=== PATIENT | female | born 1960 | race Caucasian/White ===

== ENCOUNTER → 2023-08-07 16:00 | Outpatient (BNVA) | payer MEDICARE, SELFPAY | PROVIDERS: Family Provider Internal Medicine; PCP Family Medicine; Visit Provider Family Medicine | DX: E11.9 Type 2 diabetes mellitus without complications (principal); I10 Essential (primary) hypertension; I50.9 Heart failure, unspecified; E78.5 Hyperlipidemia, unspecified; M79.7 Fibromyalgia | CPT/HCPCS: 80053; 80061; 83036; 84443; 85025 ==

== ENCOUNTER → 2023-10-01 09:14 | Outpatient (BNVA) | payer MEDICARE, MEDICAID, SELFPAY | PROVIDERS: Family Provider Internal Medicine; PCP Family Medicine; Visit Provider Nurse Practitioner Family | DX: L57.0 Actinic keratosis (principal); L57.8 Other skin changes due to chronic exposure to nonionizing radiation; D23.72 Other benign neoplasm of skin of left lower limb, including hip; L82.1 Other seborrheic keratosis; D22.5 Melanocytic nevi of trunk | CPT/HCPCS: 17000; 99203 ==

== ENCOUNTER → 2023-11-06 09:21 | Outpatient (BNVA) | payer MEDICARE, MEDICAID, SELFPAY | PROVIDERS: Family Provider Internal Medicine; PCP Family Medicine; Visit Provider Family Medicine | DX: I50.9 Heart failure, unspecified (principal); E11.9 Type 2 diabetes mellitus without complications; M79.7 Fibromyalgia | CPT/HCPCS: 80053; 80061; 82306; 83036; 85025 ==

== ENCOUNTER 2023-11-26 09:39 | Outpatient (CLI) | payer MEDICARE, MEDICAID, SELFPAY ==
--- NOTE | 2023-11-26 09:43 | XRR_ITS ---
PROCEDURE INFORMATION: Exam: XR Lumbosacral Spine Exam date and time: 11/26/2023 9:49 AM Age: 63 years old Clinical indication: Low back pain; Additional info: Vertebrogenic low back pain, please comment on presence or absence of spinal instability TECHNIQUE: Imaging protocol: Radiologic exam of the lumbosacral spine. Views: 2 or 3 views. COMPARISON: CT abdomen pelvis w con* [id number] 12/02/2016 6:04 AM FINDINGS: Bones/joints: Neutral lateral and lateral flexion/extension views of the lumbar spine were obtained. No fracture or other acute abnormality. There is anterolisthesis of L4 on L5 with no appreciable instability. Details of this anterolisthesis is difficult to evaluate due to the patient's body habitus. There is diffuse moderate to marked lumbar disc space narrowing with associated marginal osteophytes. Soft tissues: Unremarkable. XR/XR lumbar spine f/e only [id number] IMPRESSION: Anterolisthesis of L4 on L5 with no instability. Diffuse degenerative disc disease.
== END 2023-11-26 09:40 | disposition home or self-care (01) ==
LOC: RAD 09:41
PROVIDERS: Family Provider Internal Medicine; PCP Family Medicine; Visit Provider Nurse Practitioner
DX: M43.16 Spondylolisthesis, lumbar region (principal); M25.78 Osteophyte, vertebrae
CPT/HCPCS: 72120

== ENCOUNTER 2023-11-28 10:20 | Outpatient (CLI) | payer MEDICARE, MEDICAID, SELFPAY ==
--- NOTE | 2023-11-28 10:20 | MM_ITS ---
WS: [id number] BILATERAL SCREENING DIGITAL TOMOSYNTHESIS MAMMOGRAM WITH CAD HISTORY: Z12.39 - Encounter for other screening for malignant neop... COMPARISON: 08/10/2020, 07/08/2019 Bilateral CC and MLO views with tomosynthesis and synthetic mammography submitted. Computer aided det ection analyzed. Breast composition: There are scattered areas of fibroglandular density. No suspicious masses, microc alcifications or architectural distortion. MM/[place] [id number] IMPRESSION: BI-RADS: 1-Negative FOLLOW UP: 1 Year Follow-up
== END 2023-11-28 10:21 | disposition home or self-care (01) ==
PROVIDERS: PCP Family Medicine; Visit Provider Family Medicine
DX: Z12.31 Encounter for screening mammogram for malignant neoplasm of breast (principal); R92.323 Mammographic fibroglandular density, bilateral breasts
CPT/HCPCS: 77063; 77067

== ENCOUNTER → 2024-01-28 09:37 | Outpatient (BNVA) | payer MEDICARE, MEDICAID, SELFPAY | PROVIDERS: PCP Nurse Practitioner Family; Referring Provider Family Medicine; Visit Provider Internal Medicine Cardiovascular Disease | DX: R07.9 Chest pain, unspecified (principal); R06.02 Shortness of breath; I50.30 Unspecified diastolic (congestive) heart failure | CPT/HCPCS: 80048; 83880; 93005; 99204 ==

== ENCOUNTER 2024-02-13 15:35 | Outpatient (CLI) | payer MEDICARE, MEDICAID, SELFPAY ==
--- NOTE | 2024-02-13 15:46 | XRR_ITS ---
PROCEDURE INFORMATION: Exam: XR Lumbosacral Spine Exam date and time: 02/13/2024 4:13 PM Age: 64 years old Clinical indication: Injury or trauma; Fall; Blunt trauma (contusions or hematomas); Additional info: W19. Xxxa - unspecified fall, initial encounter TECHNIQUE: Imaging protocol: Radiologic exam of the lumbosacral spine. Views: 2 or 3 views. COMPARISON: CR XR lumbar spine f/e only [id number] 11/26/2023 9:49 AM FINDINGS: Bones/joints: Severe multilevel spondylosis of the lumbar spine with facet arthrosis, osteophytosis and endplate degeneration. No evidence of acute fracture or subluxation. Mild levoscoliosis. The sacrum is grossly intact. Soft tissues: Grossly unremarkable. XR/XR lumbar spine 2-3V* [id number] IMPRESSION: 1. Severe degenerative changes without evidence of acute fracture or subluxation of the lumbar spine. CT may be helpful for further detail if clinically warranted as a nondisplaced or minimally displaced fracture could be obscured given the degree of degenerative change.
--- NOTE | 2024-02-13 15:46 | XRR_ITS ---
PROCEDURE INFORMATION: Exam: XR Left Knee Exam date and time: 02/13/2024 4:13 PM Age: 64 years old Clinical indication: Injury or trauma; Fall; Blunt trauma; Knee; Left; Additional info: W19. Xxxa - unspecified fall, initial encounter TECHNIQUE: Imaging protocol: Radiologic exam of the left knee. Views: 3 views. COMPARISON: No relevant prior studies available. FINDINGS: Bones/joints: Moderate tricompartmental osteoarthritis with marginal osteophytes. No evidence of acute fracture or subluxation. No evidence of joint effusion. Soft tissues: No gross soft tissue abnormality. XR/XR knee LT 3V* [id number] IMPRESSION: 1. Osteoarthritis without evidence of acute fracture or subluxation.
--- NOTE | 2024-02-13 15:46 | XRR_ITS ---
PROCEDURE INFORMATION: Exam: XR Left Hand Exam date and time: 02/13/2024 4:13 PM Age: 64 years old Clinical indication: Injury or trauma; Fall; Blunt trauma (contusions or hematomas); Hand; Left; Additional info: W19. Xxxa - unspecified fall, initial encounter TECHNIQUE: Imaging protocol: Radiologic exam of the left hand. Views: 3 or more views. COMPARISON: CR XR wrist LT min 3V* [id number] 02/13/2024 4:13 PM FINDINGS: Bones/joints: No evidence of fracture or subluxation. Radiocarpal articulation and carpal rows are grossly intact. 3 mm degenerative calcification in the region of the distal radioulnar joint. No evidence of acute osseous erosion. Moderate osteoarthritis of the thumb carpometacarpal joint. Soft tissues: Grossly unremarkable. XR/XR hand LT min 3V* [id number] IMPRESSION: 1. No evidence of fracture or subluxation.
--- NOTE | 2024-02-13 15:46 | XRR_ITS ---
PROCEDURE INFORMATION: Exam: XR Right Knee Exam date and time: 02/13/2024 4:13 PM Age: 64 years old Clinical indication: Injury or trauma; Fall; Blunt trauma; Knee; Right; Additional info: W19. Xxxa - unspecified fall, initial encounter TECHNIQUE: Imaging protocol: Radiologic exam of the right knee. Views: 3 views. COMPARISON: No relevant prior studies available. FINDINGS: Bones/joints: Moderate-severe tricompartmental osteoarthritis with marginal osteophytes and subchondral sclerosis, worst in the medial femorotibial compartment. No evidence of acute fracture or subluxation. No evidence of joint effusion. Soft tissues: No gross soft tissue abnormality. XR/XR knee RT 3V* [id number] IMPRESSION: 1. Osteoarthritis without evidence of acute fracture or subluxation.
--- NOTE | 2024-02-13 16:03 | XRR_ITS ---
PROCEDURE INFORMATION: Exam: XR Left Wrist Exam date and time: 02/13/2024 4:13 PM Age: 64 years old Clinical indication: Injury or trauma; Fall; Blunt trauma (contusions or hematomas); Wrist; Left; Additional info: W19. Xxxa - unspecified fall, initial encounter TECHNIQUE: Imaging protocol: Radiologic exam of the left wrist. Views: 3 or more views. COMPARISON: CR XR hand LT min 3V* [id number] 02/13/2024 4:13 PM FINDINGS: Bones/joints: No evidence of fracture or subluxation. Radiocarpal articulation and carpal rows are grossly intact. Soft tissues: Grossly unremarkable. XR/XR wrist LT min 3V* [id number] IMPRESSION: 1. No evidence of fracture or subluxation.
== END 2024-02-13 15:36 | disposition home or self-care (01) ==
LOC: RAD 15:38
PROVIDERS: PCP Nurse Practitioner Family; Visit Provider Nurse Practitioner Family
DX: M51.360 Other intervertebral disc degeneration, lumbar region with discogenic back pain only (principal); M17.11 Unilateral primary osteoarthritis, right knee; M17.12 Unilateral primary osteoarthritis, left knee; M61.442 Other calcification of muscle, left hand; M19.042 Primary osteoarthritis, left hand; Y92.009 Unspecified place in unspecified non-institutional (private) residence as the place of occurrence of the external cause; W19.XXXA Unspecified fall, initial encounter
CPT/HCPCS: 72100; 73110; 73130; 73562

== ENCOUNTER → 2024-02-18 09:44 | Outpatient (BNVA) | payer MEDICARE, MEDICAID, SELFPAY | PROVIDERS: PCP Nurse Practitioner Family; Visit Provider Nurse Practitioner Family | DX: E11.9 Type 2 diabetes mellitus without complications (principal); G89.29 Other chronic pain; M54.50 Low back pain, unspecified; M81.0 Age-related osteoporosis without current pathological fracture; W19.XXXA Unspecified fall, initial encounter; Y92.009 Unspecified place in unspecified non-institutional (private) residence as the place of occurrence of the external cause | CPT/HCPCS: 80053; 83036; 84443; 85025 ==

== ENCOUNTER 2024-02-26 11:41 | Outpatient (CLI) | payer MEDICARE, MEDICAID, SELFPAY ==
--- NOTE | 2024-02-26 14:00 | USCV_ITS ---
Brittany Ward Age: 64 Gender: F : 1960 Exam Date: 02/26/2024 13:56 Ordering Phys: Brenda Aldana MD ([email or web address]) Technologist: BÁRBARA [place] [facility] [place]: CHF BP: 110 / 60 HR: 334 Rhythm: Sinus Technical Quality: Adequate MEASUREMENTS (Male / Female) Normal Values 2D ECHO LV Diastolic Diameter PLAX 5.1 cm 4.2 - 5.9 / 3.9 - 5.3 cm IVS Diastolic Thickness 1.1 cm 0.6 - 1.0 / 0.6 - 0.9 cm IVS Systolic Thickness 1.8 cm LVPW Diastolic Thickness 1.6 cm 0.6 - 1.0 / 0.6 - 0.9 cm LVPW Systolic Thickness 2.4 cm LVOT Diameter 2.0 cm LV Ejection Fraction 2D Teich 57.2 % LV Ejection Fraction MOD 4C 71.6 % LV Ejection Fraction MOD 2C 56.8 % LV Ejection Fraction 2C AL 57.6 % LA Diameter 3.3 cm RA Systolic Volume 4C AL 19.3 ml RA Systolic Volume 4C MOD 18.0 ml LA Sys Volume AL 39.5 cm cubed LA Sys Volume Index AL 17.4 cm cubed/m squared Aorta at Sinotubular Diameter 2.4 cm M-MODE LA Ao Ratio MM 0.9 AV Cusp Separation MM 1.7 cm DOPPLER AV Peak Velocity 124.0 cm/s LVOT Peak Velocity 109.0 cm/s AV Area Cont Eq vti 3.6 cm squared AV Area Cont Eq pk 2.8 cm squared MV Peak Velocity 85.0 cm/s MV Area PHT 3.4 cm squared Mitral E to A Ratio 0.9 TR Peak Velocity 124.0 cm/s TR Peak Gradient 6.2 mmHg TR Mean Velocity 97.0 cm/s TR Mean Gradient 4.1 mmHg TR Velocity Time Integral 38.9 cm TV Peak E Velocity 50.0 cm/s Right Atrial Pressure 3.0 mmHg Pulmonary Artery Systolic Pressu 9.2 mmHg PV Peak Velocity 117.0 cm/s RV Ejection Time 0.4 s FINDINGS Left Ventricle Normal LV size and ejection fraction of 57%.abnormal septal motion consistent with conduction abnormality. Grade I/IV diastolic dysfunction (abnormal relaxation filling pattern), normal to mildly elevated filling pressures. Segmental wall motion analysis difficult because of the poor ultrasonic window Right Ventricle Normal right ventricular size and systolic function. Right Atrium Normal right atrial size. Left Atrium Normal left atrial size. Mitral Valve No gross abnormalities noted Aortic Valve Peak velocity aortic valve is 1.8 cm/s with a peak gradient of 18 and a mean gradient of 9 mmHg. Tricuspid Valve Trace of tricuspid regurgitation Pulmonic Valve Pulmonic valve not well visualized. Pericardium No pericardial effusion. Aorta Normal aortic annulus size. IVC Inferior vena cava not visualized. CONCLUSIONS Normal LV size and ejection fraction of 57%.abnormal septal motion consistent with conduction abnormality. Grade I/IV diastolic dysfunction (abnormal relaxation filling pattern), normal to mildly elevated filling pressures. Segmental wall motion analysis difficult because of the poor ultrasonic window. Features of aortic valve sclerosis with a peak velocity 1.8 m/s. Trace of tricuspid regurgitation. Estimated pulmonary artery peak systolic pressure was within normal limits. There is no pericardial effusion. There are no intracardiac masses. Technically difficult study . No similar previous studies are available for comparison Dr Brenda Aldana MD [facility] (Electronically Signed) Final Date: 02 March 2024 18:19 S
== END 2024-02-26 11:42 | disposition home or self-care (01) ==
LOC: RAD 11:42
PROVIDERS: PCP Nurse Practitioner Family; Visit Provider Internal Medicine Cardiovascular Disease
DX: I50.30 Unspecified diastolic (congestive) heart failure (principal); I70.0 Atherosclerosis of aorta
CPT/HCPCS: 93306

== ENCOUNTER 2024-02-28 12:48 | Outpatient (CLI) | payer MEDICARE, MEDICAID, SELFPAY ==
[2024-02-28] MEDS: iohexol 350 mg/mL 500 mL Btl (per mL) IV (13:28)
--- NOTE | 2024-02-28 14:00 | CTR_ITS ---
PROCEDURE INFORMATION: Exam: CT Lumbar Spine With Contrast Exam date and time: 02/28/2024 1:20 PM Age: 64 years old Clinical indication: Injury or trauma; Fall; Blunt trauma (contusions or hematomas); Prior surgery; Surgery date: 6+ months; Surgery type: Gb, hysterectomy, bladder sling, appy; Additional info: W19. Xxxa - unspecified fall, initial encounter TECHNIQUE: Imaging protocol: Computed tomography of the lumbar spine with contrast. Radiation optimization: All CT scans at this facility use at least one of these dose optimization techniques: automated exposure control; mA and/or kV adjustment per patient size (includes targeted exams where dose is matched to clinical indication); or iterative reconstruction. Contrast material: OMNI 350; Contrast volume: 100 ml; Contrast route: INTRAVENOUS (IV); COMPARISON: CR XR lumbar spine 2-3V* [id number] 02/13/2024 4:13 PM RADIATION DOSE METRICS: Total DLP (mGy-cm): 924.7 FINDINGS: Bones/joints: There is a 22 degree levoscoliosis of the lumbar spine centered at L3. Vertebral body heights are preserved. There is a 3 mm grade 1 L4-L5 spondylolisthesis. Multilevel lumbar spondylosis is noted with disc osteophyte, uncovertebral spurring and facet arthropathy causing moderate to severe canal narrowing at multiple levels worst at L2-L3, L3-L4 and L4-L5. There is in addition severe neuroforaminal narrowing on the left at L5-S1. Soft tissues: Unremarkable. CT/CT lumbar spine w con [id number] IMPRESSION: No evidence for acute lumbar fracture. Levoscoliosis and multilevel lumbar spondylosis, grade 1 L4-L5 spondylolisthesis.
== END 2024-02-28 12:49 | disposition home or self-care (01) ==
LOC: RAD 12:48
PROVIDERS: PCP Nurse Practitioner Family; Visit Provider Nurse Practitioner Family
DX: M43.16 Spondylolisthesis, lumbar region (principal); M25.78 Osteophyte, vertebrae; M47.896 Other spondylosis, lumbar region; M99.63 Osseous and subluxation stenosis of intervertebral foramina of lumbar region; E11.9 Type 2 diabetes mellitus without complications; M81.0 Age-related osteoporosis without current pathological fracture; W19.XXXA Unspecified fall, initial encounter; Y92.009 Unspecified place in unspecified non-institutional (private) residence as the place of occurrence of the external cause
CPT/HCPCS: 72132

== ENCOUNTER 2024-03-18 07:53 | Outpatient (CLI) | payer MEDICARE, MEDICAID, SELFPAY ==
--- NOTE | 2024-03-18 08:30 | US_ITS ---
WS: [id number] RIGHT UPPER QUADRANT ULTRASOUND HISTORY: R74.8 - Abnormal levels of other serum enzymes COMPARISON: None available. Liver: 19.7 cm in length. Markedly enlarged heterogeneous liver. Liver demonstrates marked attenuatio n with incomplete visualization of the entire liver. Portal Vein: Normal hepatopetal flow with monophasic waveform. Gallbladder: Prior cholecystectomy. CBD: 0.6 cm Pancreas: Not visualized. Right kidney: 10.3 cm in length. Normal size and echogenicity. No hydronephrosis or mass. Aorta and IVC: Poorly visualized. Mild atherosclerosis. No ascites. US/US liver [id number] IMPRESSION: 1. Technically difficult and limited RIGHT upper quadrant ultrasound. 2. Prior cholecystectomy. 3. Marked hepatic steatosis and hepatomegaly. The entire liver is not well dariela ged due to body habitus.
== END 2024-03-18 07:54 | disposition home or self-care (01) ==
PROVIDERS: PCP Nurse Practitioner Family; Visit Provider Nurse Practitioner Family
DX: K76.0 Fatty (change of) liver, not elsewhere classified (principal); R74.8 Abnormal levels of other serum enzymes; R16.0 Hepatomegaly, not elsewhere classified; Z90.49 Acquired absence of other specified parts of digestive tract
CPT/HCPCS: 76705

== ENCOUNTER → 2024-03-31 08:03 | Outpatient (BNVA) | payer MEDICARE, MEDICAID, SELFPAY | PROVIDERS: PCP Nurse Practitioner Family; Visit Provider Nurse Practitioner Family | DX: L57.8 Other skin changes due to chronic exposure to nonionizing radiation (principal); L82.1 Other seborrheic keratosis; Z85.828 Personal history of other malignant neoplasm of skin; L57.0 Actinic keratosis | CPT/HCPCS: 17000; 99213 ==

== ENCOUNTER → 2024-05-13 09:31 | Outpatient (BNVA) | payer MEDICARE, MEDICAID, SELFPAY | PROVIDERS: PCP Nurse Practitioner Family; Visit Provider Internal Medicine Cardiovascular Disease | DX: I11.0 Hypertensive heart disease with heart failure (principal); I50.32 Chronic diastolic (congestive) heart failure; E78.2 Mixed hyperlipidemia; E11.9 Type 2 diabetes mellitus without complications; Z79.4 Long term (current) use of insulin; E03.9 Hypothyroidism, unspecified; I35.8 Other nonrheumatic aortic valve disorders | CPT/HCPCS: 36415; 80048; 83880; 99214 ==

== ENCOUNTER 2024-05-14 14:18 | Outpatient (CLI) | payer MEDICARE, MEDICAID, SELFPAY ==
--- NOTE | 2024-05-14 15:00 | XR_ITS ---
WS: [id number] DEXA (DUAL ENERGY X-RAY ABSORPTIOMETRY) Bone mineral density was performed using a SurgiLight machine. HISTORY: M81.0 - Age-related osteoporosis without current patholog... COMPARISON: None available. Lumbar spine BMD (L1-L4): 1.551 g/cm2 T score: 3.1 Z score: 3.3 Total hip BMD: Left: 1.005 g/cm2. T score: 0.0 Z score: 0.2 Right: 0.966 g/cm2. T score: -0.3 Z score: -0.1 10 year probability of a major osteoporotic fracture is 7.4%. LEFT scoliosis lumbar spine XR/XR DEXA axial skeleton* [id number] IMPRESSION: NORMAL BONE MINERAL DENSITY based upon the WHO classification for females.
== END 2024-05-14 14:19 | disposition home or self-care (01) ==
LOC: RAD 14:19
PROVIDERS: PCP Nurse Practitioner Family; Visit Provider Nurse Practitioner Family
DX: M81.0 Age-related osteoporosis without current pathological fracture (principal); M41.86 Other forms of scoliosis, lumbar region
CPT/HCPCS: 77080

== ENCOUNTER → 2024-05-15 10:46 | Outpatient (BNVA) | payer MEDICARE, MEDICAID, SELFPAY | PROVIDERS: PCP Nurse Practitioner Family; Referring Provider Nurse Practitioner Family; Visit Provider Student in an Organized Health Care Education/Training Program | DX: Z12.11 Encounter for screening for malignant neoplasm of colon (principal) | CPT/HCPCS: 99024; 99204 ==

== ENCOUNTER 2024-06-24 06:25 | Day surgery (SDC) | payer MEDICARE, MEDICAID, SELFPAY ==
[2024-06-24 06:43] VITALS: BP 144/79; PULSE 65; RESP 17; TEMP 36.5; O2SAT 98; BMI 7030.0
--- NOTE | 2024-06-24 07:05 | W.PM.OPSFHP ---
Same Day Surgery H&P Indication for Procedure/HPI DATE OF PROCEDURE: June 24, 2024 CHIEF COMPLAINT/INDICATIONFOR SURGICAL PROCEDURE: screening colonoscopy PREOP DIAGNOSIS: screening colonoscopy PLANNED PROCEDURE: Operation Date: 06/24/24 07:30 Proposed Procedures p Colonoscopy 41549, G0105, Z12.11(Not Applicable) - Jose Powers MD Medications/Allergies* Home Medications ?Medication ?Instructions ?Recorded ?Confirmed ?Type hydrocodone 10 mg-acetaminophen 15 ml PO Q4H PRN Pain 08/07/23 06/24/24 History 325 mg/15 mL oral solution ascorbate calcium (vitamin C) 500 500 mg PO DAILY 01/28/24 06/24/24 History mg tablet aspirin 81 mg tablet,delayed 81 mg PO DAILY 01/28/24 06/24/24 History release cholecalciferol (vitamin D3) 25 25 mcg PO DAILY 01/28/24 06/24/24 History mcg (1,000 unit) capsule coenzyme Q10 100 mg capsule (Co 100 mg PO DAILY 01/28/24 06/24/24 History Q-10) krill oil 500 mg capsule 500 mg PO DAILY 01/28/24 06/24/24 History bisoprolol 10 1 tab PO DAILY 06/19/24 06/24/24 History mg-hydrochlorothiazide 6.25 mg tablet (Ziac) Allergies/Adverse Reactions Allergy/AdvReac Type Severity Reaction Status Date / Time Influenza Virus Vaccines Allergy ADR-Chest Verified 06/24/24 06:32 Pain pregabalin (From Lyrica) Allergy ADR-Chest Verified 06/24/24 06:32 Pain sulfamethoxazole (From Allergy ADR-Chest Verified 06/24/24 06:32 Bactrim) Pain trimethoprim (From Bactrim) Allergy ADR-Chest Verified 06/24/24 06:32 Pain Pertinent History/Comorbid Conditions* Medical History (Updated 05/13/24 @ 10:59 by Brenda Aldana MD) Osteoporosis Hypothyroidism Family History (Updated 05/15/24 @ 11:04 by JOSHUA Zheng) Heart disease Mother Father Social History Smoking and tobacco/nicotine status: never used tobacco/nicotine Pertinent Exam Findings alert, oriented x 3, clear to auscultation bilaterally, regular rate & rhythm and procedure specific exam findings abdomen soft, nt, nd Recommendations Surgery/Procedure today Other Plans: Colonoscopy today Coding Level of Care Code Acute Code for Chg Fwd
[2024-06-24] MEDS: sodium chloride 0.9% 500 ML 15 ML IV (07:08)
[2024-06-24 07:09] LABS: Glucose Point of Care 141 mg/dL (70-110)
--- NOTE | 2024-06-24 07:10 | ANES.PREANE2 ---
Pre-Anesthetic Assessment Height/Weight: Height 12.7 cm Weight 113.398 kg Temp Pulse Resp BP Pulse Ox O2 Del Method 97.7 F 65 17 144/79 98 Room Air 06/24/24 06:43 06/24/24 06:43 06/24/24 06:43 06/24/24 06:43 06/24/24 06:43 06/24/24 06:43 Preop Diagnosis: screening colonoscopy Operation Date: 06/24/24 07:30 Proposed Procedures p Colonoscopy 13941, G0105, Z12.11(Not Applicable) - Jose Powers MD Was Beta Carlos taken within 24 hours: Yes Was Clonidine taken within 24 hours: N/A Last intake: Intake Last Liquid Date 06/23/24 Last Liquid Time 23:00 Last Solid Date 06/22/24 Last Solid Time 20:00 Social No alcohol and No tobacco Exam alert, oriented x 3, clear to auscultation bilaterally and regular rate & rhythm Airway Mallampati: Class III Dentition: full Pulmonary Othopnea and Shortness of Breath (Baseline per patient, no new worsening symptoms. ) CV/HEM Hypertension (HLD, Diastolic HF with preserved EF, mild aortic sclerosis. No new symptoms of SOB/Chest pain. ) None reported Hepatic None reported GI Gastroesophageal Reflux Disease Controlled with medication Metabolic Morbid Obesity and Thyroid Disease BG140, hypothyroid Musc/skel None reported Neuropsych None reported Anesthetic Plan ASA status: 3 Anesthesia: MAC Risk of > 500 ml blood loss (7ml/kg in children): No Medications/Allergies Home Medications ?Medication ?Instructions ?Recorded ?Confirmed ?Last Taken ?Type hydrocodone 10 mg-acetaminophen 15 ml PO Q4H PRN Pain 08/07/23 06/24/24 06/23/24 History 325 mg/15 mL oral solution ascorbate calcium (vitamin C) 500 500 mg PO DAILY 01/28/24 06/24/24 06/16/24 History mg tablet aspirin 81 mg tablet,delayed 81 mg PO DAILY 01/28/24 06/24/24 06/18/24 History release cholecalciferol (vitamin D3) 25 25 mcg PO DAILY 01/28/24 06/24/24 06/16/24 History mcg (1,000 unit) capsule coenzyme Q10 100 mg capsule (Co 100 mg PO DAILY 09/30/24 02/25/25 02/17/25 History Q-10) krill oil 500 mg capsule 500 mg PO DAILY 01/28/24 06/24/24 06/16/24 History sacubitril 49 mg-valsartan 51 mg 1 tab PO BID 30 days #180 tabs 05/01/24 06/24/24 06/23/24 Rx tablet (Entresto) alendronate 70 mg tablet (Fosamax) 70 mg PO .weekly #12 tabs 05/08/24 06/24/24 06/23/24 Rx atorvastatin 10 mg tablet (Lipitor) 10 mg PO DAILY #30 tabs 05/08/24 06/24/24 06/23/24 Rx fenofibrate 160 mg tablet 160 mg PO DAILY #30 tabs 05/08/24 06/24/24 06/23/24 Rx fluticasone propionate 50 2 spray intranasal DAILY #16 grams 05/08/24 06/24/24 06/15/24 Rx mcg/actuation nasal spray,suspension furosemide 40 mg tablet 40 mg PO DAILY #30 tabs 05/08/24 06/19/24 06/22/24 Rx gabapentin 800 mg tablet 800 mg PO TID #270 tabs 05/08/24 06/24/24 06/23/24 Rx levothyroxine 50 mcg capsule 50 mcg PO DAILY #30 caps 05/08/24 06/24/24 06/24/24 Rx metformin 500 mg tablet 500 mg PO BID #60 tabs 05/08/24 06/19/24 06/22/24 Rx pantoprazole 40 mg tablet,delayed 40 mg PO BID #60 tabs 05/08/24 06/24/24 06/23/24 Rx release potassium chloride 20 mEq 20 meq PO BID #60 tabs 05/08/24 06/24/24 06/23/24 Rx tablet,extended release(part/cryst) promethazine-DM 6.25 mg-15 mg/5 mL 5 - 10 ml PO Q6H PRN cough #240 mL 05/08/24 06/24/24 Unknown Rx oral syrup semaglutide 1 mg/dose (4 mg/3 mL) 1 mg (0.75 mL) SUBCUT .weekly #3 mL 05/08/24 06/24/24 06/15/24 Rx subcutaneous pen injector (Ozempic) sitagliptin phosphate 100 mg 100 mg PO DAILY #30 tabs 05/08/24 06/24/24 06/23/24 Rx tablet (Januvia) tizanidine 4 mg tablet 4 mg PO Q8H PRN muscle spasticity 05/08/24 06/24/24 06/23/24 Rx #90 tabs bisoprolol 10 1 tab PO DAILY 06/19/24 06/24/24 06/24/24 History mg-hydrochlorothiazide 6.25 mg tablet (Ziac) Allergies Allergy/AdvReac Type Severity Reaction Status Date / Time Influenza Virus Vaccines Allergy ADR-Chest Verified 06/24/24 06:32 Pain pregabalin (From Lyrica) Allergy ADR-Chest Verified 06/24/24 06:32 Pain sulfamethoxazole (From Allergy ADR-Chest Verified 06/24/24 06:32 Bactrim) Pain trimethoprim (From Bactrim) Allergy ADR-Chest Verified 06/24/24 06:32 Pain Current Medications Generic Name Dose Route Start Last Admin Trade Name Freq PRN Reason Stop Dose Admin Sodium Chloride 500 mls @ 15 mls/hr 06/24/24 06:28 06/24/24 07:08 Sodium Chloride 0.9% IV 06/25/24 06:27 15 mls/hr .Q24H PRN Administration COLONOSCOPY FLUIDS PFSH Anesthesia Medical History (Updated 05/15/24 @ 11:03 by JOSHUA Zheng) Osteoporosis Hypothyroidism Family History (Updated 05/15/24 @ 11:04 by JOSHUA Zheng) Mother Heart disease Father Heart disease Social History Smoking and tobacco/nicotine status: never used tobacco/nicotine Data Anesthesia Cardiac Studies: Echocardiogram 02/26/24
[2024-06-24 07:56] VITALS: BP 82/50; PULSE 69; RESP 18; TEMP 36.3; O2SAT 93
[2024-06-24 08:04] VITALS: BP 106/54; PULSE 66; RESP 18; TEMP 36.2; O2SAT 97
--- NOTE | 2024-06-24 10:33 | ANE.PACU2 ---
Inpatient post-anesthesia follow up: Airway intact: Yes Vital signs: Temperature 97.2 F Pulse Rate 66 Respiratory Rate 18 Blood Pressure 106/54 Pulse Oximetry 97 Oxygen Delivery Me thod Room Air Oxygen Flow Rate Fraction of Inspir ed Oxygen Hydration adequate: Yes Nausea and vomiting: No Pain level: 1 Mental status: Baseline
== END 2024-06-24 08:27 | disposition home or self-care (01) ==
PROVIDERS: PCP Nurse Practitioner Family; Visit Provider Student in an Organized Health Care Education/Training Program
PROC: 0DJD8ZZ Inspection of Lower Intestinal Tract, Via Natural or Artificial Opening Endoscopic (ICD-10-PCS; CPT 45378; principal; 2024-06-24 07:30)
DX: Z12.11 Encounter for screening for malignant neoplasm of colon (principal); M81.0 Age-related osteoporosis without current pathological fracture; E03.9 Hypothyroidism, unspecified; I11.0 Hypertensive heart disease with heart failure; E78.5 Hyperlipidemia, unspecified; I50.32 Chronic diastolic (congestive) heart failure; I70.0 Atherosclerosis of aorta; K21.9 Gastro-esophageal reflux disease without esophagitis; E66.01 Morbid (severe) obesity due to excess calories; Z79.899 Other long term (current) drug therapy; Z79.82 Long term (current) use of aspirin; Z88.2 Allergy status to sulfonamides; Z88.7 Allergy status to serum and vaccine
CPT/HCPCS: 36416; 82962; G0105; G0121; J2704; J7040

== ENCOUNTER → 2024-08-12 08:29 | Outpatient (BNVA) | payer MEDICARE, MEDICAID, SELFPAY | PROVIDERS: PCP Nurse Practitioner Family; Visit Provider Podiatrist Foot & Ankle Surgery | DX: M79.671 Pain in right foot (principal); M79.672 Pain in left foot; E11.9 Type 2 diabetes mellitus without complications; Z79.4 Long term (current) use of insulin; M19.071 Primary osteoarthritis, right ankle and foot; M19.072 Primary osteoarthritis, left ankle and foot; M76.61 Achilles tendinitis, right leg; Z79.84 Long term (current) use of oral hypoglycemic drugs; M76.62 Achilles tendinitis, left leg | CPT/HCPCS: 73630; 99203 ==

== ENCOUNTER → 2024-09-29 08:26 | Outpatient (BNVA) | payer MEDICARE, MEDICAID, SELFPAY | PROVIDERS: PCP Nurse Practitioner Family; Visit Provider Nurse Practitioner Family | DX: L57.8 Other skin changes due to chronic exposure to nonionizing radiation (principal); X32.XXXA Exposure to sunlight, initial encounter; L57.0 Actinic keratosis; L81.4 Other melanin hyperpigmentation; Z85.828 Personal history of other malignant neoplasm of skin | CPT/HCPCS: 17000; 99213 ==

== ENCOUNTER → 2024-10-14 07:59 | Outpatient (BNVA) | payer MEDICARE, MEDICAID, SELFPAY | PROVIDERS: PCP Nurse Practitioner Family; Visit Provider Podiatrist Foot & Ankle Surgery | DX: E11.9 Type 2 diabetes mellitus without complications (principal); Z79.4 Long term (current) use of insulin; M19.071 Primary osteoarthritis, right ankle and foot; M19.072 Primary osteoarthritis, left ankle and foot; M76.61 Achilles tendinitis, right leg; M76.62 Achilles tendinitis, left leg | CPT/HCPCS: 99214 ==

== ENCOUNTER → 2024-11-11 08:43 | Outpatient (BNVA) | payer OTHER, MEDICAID, SELFPAY | PROVIDERS: PCP Family Medicine; Visit Provider Nurse Practitioner Family | DX: I11.0 Hypertensive heart disease with heart failure (principal); I50.30 Unspecified diastolic (congestive) heart failure; E11.9 Type 2 diabetes mellitus without complications; Z79.84 Long term (current) use of oral hypoglycemic drugs; Z79.85 Long-term (current) use of injectable non-insulin antidiabetic drugs; E78.5 Hyperlipidemia, unspecified; E03.9 Hypothyroidism, unspecified; I35.8 Other nonrheumatic aortic valve disorders; Z79.82 Long term (current) use of aspirin | CPT/HCPCS: 99213 ==

== ENCOUNTER 2024-12-18 10:41 | Outpatient (CLI) | payer OTHER, MEDICAID, SELFPAY ==
--- NOTE | 2024-12-18 10:40 | MM_ITS ---
WS: [id number] BILATERAL SCREENING DIGITAL TOMOSYNTHESIS MAMMOGRAM WITH CAD HISTORY: SCREENING COMPARISON: 11/28/2023, 08/10/2020 Bilateral CC and MLO views with tomosynthesis and synthetic mammography submitted. Computer aided detection analyzed. Breast composition: There are scattered areas of fibroglandular density. No suspicious masses, microcalcifications or architectural distortion. Few scattered benign calcifications. MM/MM scr BI tomosynthesis [id number] IMPRESSION: BI-RADS: 2 - Benign. FOLLOW UP: 1 Year Follow-up
== END 2024-12-18 10:42 | disposition home or self-care (01) ==
LOC: MOBLMAM 10:42
PROVIDERS: PCP Family Medicine; Visit Provider Family Medicine
DX: Z12.31 Encounter for screening mammogram for malignant neoplasm of breast (principal); R92.323 Mammographic fibroglandular density, bilateral breasts; R92.1 Mammographic calcification found on diagnostic imaging of breast
CPT/HCPCS: 77063; 77067

== ENCOUNTER → 2025-04-06 10:50 | Outpatient (BNVA) | payer OTHER, MEDICAID, SELFPAY | PROVIDERS: PCP Family Medicine; Visit Provider Nurse Practitioner Family | DX: L57.8 Other skin changes due to chronic exposure to nonionizing radiation (principal); D23.72 Other benign neoplasm of skin of left lower limb, including hip; D18.01 Hemangioma of skin and subcutaneous tissue; L85.3 Xerosis cutis; Z08 Encounter for follow-up examination after completed treatment for malignant neoplasm; Z85.828 Personal history of other malignant neoplasm of skin; L57.0 Actinic keratosis | CPT/HCPCS: 17000; 99213 ==

== ENCOUNTER → 2025-04-14 08:07 | Outpatient (BNVA) | payer MEDICARE, MEDICAID, SELFPAY | PROVIDERS: PCP Family Medicine; Visit Provider Podiatrist Foot & Ankle Surgery | DX: E11.8 Type 2 diabetes mellitus with unspecified complications (principal); Z79.4 Long term (current) use of insulin; M19.071 Primary osteoarthritis, right ankle and foot; M19.072 Primary osteoarthritis, left ankle and foot; M76.61 Achilles tendinitis, right leg; M76.62 Achilles tendinitis, left leg; Z79.84 Long term (current) use of oral hypoglycemic drugs | CPT/HCPCS: 11721; 99213 ==